=== PATIENT | male | born 1980 | race Caucasian/White ===

== ENCOUNTER 2018-03-23 07:27 | Emergency (ER) | payer OTHER ==
[~2018-03-23] VITALS: Ht 185.4 cm; Wt 103.4 kg
[2018-03-23] MEDS ORDERED: CEFTRIAXONE SOD 1 GM VIAL IM ONE (08:00)
[2018-03-23] MEDS ORDERED: LIDOCAINE 1% 5ML-MPF INJ ONE (08:00)
[2018-03-23 08:42] VITALS: BP 128/77
== END 2018-03-23 08:44 | disposition home or self-care (01) ==
LOC: FSED 07:27
DX: R05 Cough (principal); H65.01 Acute serous otitis media, right ear; J00 Acute nasopharyngitis [common cold]
CPT/HCPCS: 96372; 99282; J0696

== ENCOUNTER 2018-05-07 05:20 | Observation (INO) | payer OTHER ==
[2018-05-05 12:59] LABS: BASOPHILS % 0.4 % (0.0-1.0); EOSINOPHILS # (AUTO) 0.2 (0.0-0.4); EOSINOPHILS % 4.5 % (0.0-6.0); HEMOGLOBIN 16.2 g/dL (14.0-18.0); LYMPHOCYTES # (AUTO) 1.5 (1.0-3.2); LYMPHOCYTES % 31.7 % (18.0-39.1); MEAN CORPUSCULAR HEMOGLOBIN 30.7 pg (28-32); MEAN CORPUSCULAR HGB CONC 34.5 g/dL (31-35); MONOCYTES # (AUTO) 0.4 (0.2-0.8); MONOCYTES % 9.4 % (4.4-11.3); NEUTROPHILS # (AUTO) 2.5 (2.1-6.9); NEUTROPHILS % 53.6 % (38.7-80.0); PLATELET COUNT 184 x10e3/uL (140-360); RED BLOOD COUNT 5.28 x10e6/uL (4.3-5.7); RED CELL DISTRIBUTION WIDTH 12.3 % (11.7-14.4)
[2018-05-05 13:13] LABS: INR 0.99; PROTHROMBIN TIME 12.3 seconds (11.9-14.5)
[2018-05-05 13:14] LABS: PARTIAL THROMBOPLASTIN TIME 27.4 seconds (23.8-35.5)
[2018-05-05 13:22] LABS: ANION GAP 14.2 mmol/L (8-16); BLOOD UREA NITROGEN 14 mg/dL (7-26); BUN/CREATININE RATIO 14 (6-25); CALCIUM 9.4 mg/dL (8.4-10.2); CARBON DIOXIDE 26 mmol/L (22-29); CHLORIDE 107 mmol/L (98-107); EST GLOMERULAR FILTRATION RATE > 60 ML/MIN (60-); GLUCOSE 118 mg/dL (74-118); POTASSIUM 4.2 mmol/L (3.5-5.1); SODIUM 143 mmol/L (136-145)
--- NOTE | 2018-05-05 14:26 | Diagnostic Imaging Report ---
EXAMINATION: PA and lateral views of the chest. COMPARISON: None CLINICAL HISTORY: Preoperative for cervical spine surgery DISCUSSION: Lungs are well-inflated. No focal airspace consolidation, pleural effusion, or pneumothorax. Cardiomediastinal contour and pulmonary vasculature are within normal limits. No acute osseous abnormality. IMPRESSION: No acute cardiopulmonary abnormalities. Signed by: Dr. Chirag Lopez M.D. on 05/05/2018 2:23 PM
[~2018-05-07] VITALS: Ht 185.4 cm; Wt 107.1 kg
[~2018-05-07 05:20] MED LIST: LYRICA75 MG PO; NORCO 5-325 TA1 EACH PO
[2018-05-07] MEDS ORDERED: CEFAZOLIN SOD 2 GM/D5W 50ML 50 ML IV ONE (06:01)
[2018-05-07] MEDS ORDERED: BUPIVACAINE 0.5%/EPI 30 ML SDV INJ ONE (06:30)
[2018-05-07] MEDS ORDERED: THROMBIN FOR SOLN 5,000 UNIT VIAL ONE (06:31)
[2018-05-07] MEDS ORDERED: GELATIN SPONGE SZ 100 ONE (06:31)
[2018-05-07] MEDS ORDERED: BACITRACIN 50,000 UNIT VIAL ONE (06:31)
[2018-05-07] MEDS ORDERED: ACETAMINOPHEN 1000 MG/100 ML 100 ML IV ONE (07:11)
[2018-05-07] MEDS ORDERED: LIDOCAINE HCL (LTA) 4 ML SOLN ONE (07:12)
[2018-05-07] MEDS ORDERED: MORPHINE SULFATE 5 MG/ML VIAL IM PRN (08:45)
[2018-05-07] MEDS ORDERED: PROMETHAZINE HCL (IM) 25 MG/ML VIAL IM PRN (08:45)
[2018-05-07] MEDS ORDERED: CARISOPRODOL 350 MG TAB PO PRN (08:45)
[2018-05-07] MEDS ORDERED: ACETAMINOPHEN 325 MG TAB PO PRN (08:45)
[2018-05-07] MEDS ORDERED: HYDROMORPHONE 2MG/ML 2 MG/ML ML IV PRN (08:45)
[2018-05-07] MEDS ORDERED: MAGNESIUM/ALUMINUM/SIMETHICONE 30 ML UDC PO PRN (08:45)
[2018-05-07] MEDS ORDERED: ONDANSETRON HCL INJ 2 MG/ML VIAL IV PRN (08:45)
[2018-05-07] MEDS ORDERED: FENTANYL CITRATE/PF 100MCG/2 ML INJ ONE ×2 (08:52→17:51)
[2018-05-07] MEDS: PREGABALIN 75 MG CAP PO SCH (09:00)
[2018-05-07 09:33] VITALS: BP 132/84
[2018-05-07 09:59] VITALS: BP 132/84
[2018-05-07] MEDS: LACTATED RINGER'S 1,000 ML IV SCH ×2 (10:13→17:00)
[2018-05-07 12:25] VITALS: BP 134/93
[2018-05-07] MEDS: OXYCODONE/ACETAMINOPHEN 5-325 1 EACH TABLET PO PRN ×3 (13:05→21:40)
[2018-05-07] MEDS ORDERED: CEFAZOLIN SOD 1 GM/D5W 50ML 50 ML IV SCH (14:00)
[2018-05-07] MEDS: CEFAZOLIN SOD 1 GM VIAL IV SCH ×2 (14:46→21:01)
[2018-05-07 16:59] VITALS: BP 123/69
[2018-05-07] MEDS ORDERED: MIDAZOLAM HCL 2 MG/2 ML VIAL ONE (17:51)
[2018-05-07] MEDS ORDERED: ROCURONIUM BROMIDE 10 MG/ML 5ML VIAL ONE (18:25)
[2018-05-07] MEDS ORDERED: LIDOCAINE HCL 2% LOCAL INJ 5 ML SDV VIAL INJ ONE (18:25)
[2018-05-07] MEDS ORDERED: PROPOFOL IV EMULSION 10 MG/ML 20 ML VIAL ONE (18:25)
[2018-05-07] MEDS ORDERED: GLYCOPYRROLATE INJ 1MG/ 5 ML SYR ONE (18:25)
[2018-05-07] MEDS ORDERED: DEXAMETHASONE SOD PHOS INJ 4 MG/ML VIAL ONE (18:25)
[2018-05-07] MEDS ORDERED: SEVOFLURANE INHAL SOLN 250 ML PEN BTL ONE (18:25)
[2018-05-07] MEDS ORDERED: NEOSTIGMINE 5 MG/5ML SYR ONE (18:25)
[2018-05-07] MEDS ORDERED: LIDOCAINE HCL 2% JELLY 5 ML TUBE ONE (18:25)
[2018-05-07] MEDS ORDERED: ONDANSETRON HCL INJ 2 MG/ML VIAL ONE (18:25)
[2018-05-07 20:00] VITALS: BP 127/7
[2018-05-07] MEDS ORDERED: ZOLPIDEM TARTRATE 5 MG TAB PO PRN (21:00)
[2018-05-08] VITALS: BP 118/66
[2018-05-08 04:00] VITALS: BP 127/72
--- NOTE | 2018-05-08 05:37 | Diagnostic Imaging Report ---
C-SPINE 2 VIEWS AP LATERAL Comparison: None Clinical history: Status post surgery Findings: Straightening the normal cervical lordosis, which may be positional. Status post C6-7 anterior cervical fusion with integrated intervertebral device/spacer. Mild C5-6 degenerative changes. Mild prevertebral soft tissue gas/swelling, likely postsurgical. Impression: Status post C6-7 anterior cervical fusion without evidence of acute complication. Signed by: Dr Liliam Esteves MD on 05/08/2018 5:34 AM
[2018-05-08] MEDS: CEFAZOLIN SOD 1 GM VIAL IV SCH (06:15)
[2018-05-08] MEDS ORDERED: NORCO 7.5-3251 EACH PO (07:52)
[2018-05-08 08:25] VITALS: BP 113/61
[2018-05-08] MEDS: PREGABALIN 75 MG CAP PO SCH (09:14)
[2018-05-08] MEDS: OXYCODONE/ACETAMINOPHEN 5-325 1 EACH TABLET PO PRN (09:14)
--- NOTE | 2018-05-15 16:17 | Operative Report ---
DATE OF PROCEDURE: May 07, 2018 PREOPERATIVE DIAGNOSIS: C6-7 disk herniation with radiculopathy, M50.123. POSTOPERATIVE DIAGNOSIS: C6-7 disk herniation with radiculopathy, M50.123. PROCEDURES: 1. C6-C7 anterior cervical diskectomy and microsurgical osteophyte resection and allograft fusion, 17807. 2. Preparation of MTF cortical cancellous allograft, 15680. 3. C6-C7 anterior cervical plating with Synthes ZP endplate, 58645. ANESTHESIA: General. INDICATIONS: The patient is a 38-year-old man who presents with a severe right C7 radiculopathy due to a C6-7 disk herniation and was taken to operating room for anterior cervical decompression and fusion. PROCEDURE: After induction of anesthesia, the patient was placed on the operating table in supine position. The right side the neck was prepped and draped in sterile fashion. The fluoroscopic C-arm was positioned in cross-table lateral orientation. A small transverse incision was created on the right side of the neck superimposed on the C6-7 disk space as determined by fluoroscopy. The platysma was divided in line with the incision. A subplatysmal dissection was carried out and avascular plane of dissection was developed medial to sternocleidomastoid muscle and was followed medial to the carotid sheath and the anterior border of the cervical spine. The deep cervical fascia was opened. The esophagus was retracted to the left. The attachments of longus coli muscles to the anterolateral aspects of vertebral bodies of C6 and C7 were divided. The anterior longitudinal ligament was resected. [place] posts were inserted into C6 and C7. The [place] distractor was used to distract the disk space. The anterior annulus of the disk was incised with a #11 blade and the contents of the disks were thoroughly evacuated with angled curets and pituitary rongeurs. The posterior osteophytes were meticulously drilled with a 2 mm cutting bur on a high-speed drill until they were completely removed. The posterior annulus of the disk, herniated disk material, and the posterior longitudinal ligament were resected layer by layer until the dura was fully exposed and decompressed. The medial aspects of uncinate processes were resected and large amounts of herniated disk was retrieved and removed from the right C7 neural foramen. After satisfactory decompression had been achieved, a piece of MTF cortical cancellous allograft was prepared in saline and loaded onto a Synthes ZP endplate and inserted into the C6-7 disk space under distraction and fluoroscopic guidance. The plate was screwed to the endplates of C6 and C7 with 2 pairs of 14 mm screws. All screws were locked. An excellent construct was obtained. The wound was copiously irrigated with Bacitracin solution and incision was closed with 3-0 Vicryl sutures and 4-0 Monocryl sutures. No intraoperative complications were encountered. Estimated blood loss was 10 mL. Job#: [id number]
== END 2018-05-08 09:30 | disposition home or self-care (01) ==
LOC: OR 05:20 → PACU V 08:41 → MED/SURG 09:10
PROVIDERS: ADMIT Neurological Surgery; ATTEND Neurological Surgery
DX: M50.123 Cervical disc disorder at C6-C7 level with radiculopathy (principal); Z01.810 Encounter for preprocedural cardiovascular examination; Z01.812 Encounter for preprocedural laboratory examination; Z01.811 Encounter for preprocedural respiratory examination
CPT/HCPCS: 20931; 22551; 22845; 36415; 71046; 72040; 77003; 80048; 85025; 85610; 85730; 86850; 86900; 88304; 93005; C1713 ×2; C9359; G0378 ×2; J0690 ×2; J1100; J2001 ×2; J2250; J2405; J3490; J7120; J2270